=== PATIENT | male | born 1955 | race African-American/Black ===

== ENCOUNTER 2018-12-23 17:21 | Emergency (ER) | payer OTHER ==
[~2018-12-23] VITALS: Ht 182.9 cm; Wt 104.3 kg
--- NOTE | 2018-12-23 17:30 | NUR ---
BIBRA 861 FROM HOME C/O BACK PAIN, PER REPORT PT VERBALIZED S/I TO FAMILY, PT DENIES SI AT THIS TIME. [employer] AT BEDSIDE, PT NOT IN CUSTODY. SUICIDE PRECAUTIONS IN PLACE. GOWN ON, BELONGINGS AT NURSE STATION, PT WANDED BY SECURITY. READY FOR EVAL.
[2018-12-23 17:47] LABS: BASOPHILS % (AUTO) 0.7 % (0.0-2.0); EOSINOPHILS % (AUTO) 1.3 % (0.0-6.0); HEMATOCRIT 46 % (39-51); HEMOGLOBIN 15.7 g/dL (13.5-17.5); LYMPHOCYTES # (AUTO) 2.8 /CMM (0.8-4.8); LYMPHOCYTES % (AUTO) 70.7 % (20.0-44.0); MEAN CORPUSCULAR HGB CONC 34 g/dl (31.0-36.0); MEAN CORPUSCULAR VOLUME 98 fL (80-96); MONOCYTES # (AUTO) 0.2 /CMM (0.1-1.30); MONOCYTES % (AUTO) 5.9 % (2.0-12.0); NEUTROPHILS # (AUTO) 0.8 /CMM (1.8-8.9); NEUTROPHILS % (AUTO) 21.4 % (43.0-81.0); PLATELET COUNT (AUTO) 166 /CMM (150-450); RED BLOOD CELL COUNT(AUTO) 4.73 MIL/uL (4.5-6.0); WHITE BLOOD COUNT (AUTO) 3.9 K/uL (4.3-11.0)
[2018-12-23 17:54] LABS: CALCIUM, SERUM 7.9 mg/dL (8.5-10.1); POTASSIUM 3.5 mmol/L (3.5-5.1)
[2018-12-23 18:01] LABS: ALBUMIN 3.5 g/dL (3.4-5.0); BILIRUBIN,DIRECT 0.1 mg/dL (0.0-0.2); BILIRUBIN,TOTAL 0.6 mg/dL (0.2-1.0); TOTAL PROTEIN, SERUM 6.4 g/dL (6.4-8.2)
[2018-12-23 18:32] LABS: APPEARANCE,URINE Slightly Cloudy (CLEAR); BILIRUBIN,URINE Negative (NEGATIVE); BLOOD, URINE Negative Ery/uL (NEGATIVE); COLOR,URINE Dark (YELLOW); KETONES,URINE Negative (NEGATIVE); LEUKOCYTE ESTERASE ,URINE Negative (NEGATIVE); NITRITE, URINE Negative (NEGATIVE); PH,URINE 5.5 (5.0-8.0); PROTEIN,URINE 30 mg/dl (NEGATIVE); UGLUCOSE Negative (NEGATIVE); UROBILINOGEN,URINE 0.2 EU/dL (0.2)
[2018-12-23 18:48] LABS: BACTERIA,URINE Rare /HPF (None Seen); SQUAMOUS EPITHELIAL CELL,UR Few /HPF (None Seen)
[2018-12-23 18:49] LABS: HYALINE CASTS, URINE Few /LPF (None Seen); MUCUS,URINE Few /LPF (None Seen); RBC,URINE 0-2 /HPF (0-2); WBC,URINE 0-2 /HPF (0-3)
--- NOTE | 2018-12-23 19:00 | NUR ---
PT WANDERING OUT OF BED. STATES HE "CANT LIE IN BED TOO LONG BECAUSE OF BACK PAIN". ENCOURAGED PT BACK TO AND OFFERED HIM FOOD AND TV.
[2018-12-23 19:18] LABS: LYMPHOCYTES % (MANUAL) 62 % (16-48); MONOCYTES % (MANUAL) 5 % (0-11.0); NEUTROPHILS % (MANUAL) 21 (42-76)
[2018-12-23 19:19] LABS: EOSINOPHILS % (MANUAL) 2 % (0-4); REACTIVE LYMPHOCYTES 10 % (0-0)
--- NOTE | 2018-12-23 20:21 | NUR ---
BROTHER WENT HOME TO [facility]. REQUESTS WE CALL HIM WITH AN UPDATE. NUMBER IN PT DATA
[2018-12-23] MEDS ORDERED: GABAPENTIN 300 MG CAPSULE ONE (20:43)
--- NOTE | 2018-12-23 20:50 | NUR ---
PT VERBALIZED THAT HE HAVE A SCHEDULE GABAPENTIN 300MG DUE TO BE TAKEN FOR HIS BACK NEUROPATHY. INFORMED MD. ORDER RECEIVED TO GIVE GABAPENTIN. NOTED AND CARRIED OUT
[2018-12-23] MEDS ORDERED: GABAPENTIN 100 MG CAPSULE PO ONE (21:00)
--- NOTE | 2018-12-23 21:11 | NUR ---
[employer] AT BEDSIDE FOR BLOOD ALCOHOL REDRAW
--- NOTE | 2018-12-23 23:17 | NUR ---
Patient is resting comfortably in bed with eyes closed. Easily aroused. VSS
--- NOTE | 2018-12-24 03:46 | NUR ---
Patient discharged to home in stable condition. Written and verbal after care instructions given. Patient verbalizes understanding of instruction.
[2018-12-24 03:48] VITALS: BP 135/88
== END 2018-12-24 03:49 | disposition home or self-care (01) ==
LOC: ER 17:21
DX: R45.851 Suicidal ideations (principal); F10.129 Alcohol abuse with intoxication, unspecified; G89.29 Other chronic pain; M19.90 Unspecified osteoarthritis, unspecified site; I10 Essential (primary) hypertension; I48.91 Unspecified atrial fibrillation; Y90.8 Blood alcohol level of 240 mg/100 ml or more
CPT/HCPCS: 36415 ×2; 80048; 80076; 80305; 80307 ×4; 80329; 81001; 85025; 99284; G0480; 81000-TC

== ENCOUNTER 2024-05-21 16:50 | Emergency (ER) | payer OTHER ==
[~2024-05-21] VITALS: Ht 175.3 cm; Wt 100.7 kg
[2024-05-21 17:33] LABS: BASOPHILS % (AUTO) 0.7 % (0.0-2.0); EOSINOPHILS % (AUTO) 0.6 % (0.0-6.0); HEMATOCRIT 45 % (39-51); HEMOGLOBIN 15.5 g/dL (13.5-17.5); MEAN CORPUSCULAR HEMOGLOBIN 33 PG (26.0-33.0); MEAN CORPUSCULAR HGB CONC 34 g/dl (31.0-36.0); MEAN CORPUSCULAR VOLUME 96 fL (80-96); MONOCYTES # (AUTO) 0.6 K/uL (0.1-1.30); MONOCYTES % (AUTO) 10.2 % (2.0-12.0); NEUTROPHILS # (AUTO) 2.8 K/uL (1.8-8.9); NEUTROPHILS % (AUTO) 51.5 % (43.0-81.0); PLATELET COUNT (AUTO) 135 K/uL (150-450); WHITE BLOOD COUNT (AUTO) 5.4 K/uL (4.3-11.0)
[2024-05-21 17:42] LABS: CARBON DIOXIDE 23 mmol/L (21-32); CHLORIDE 107 mmol/L (98-107); CREATININE 1.3 mg/dL (0.6-1.3); GLUCOSE 85 mg/dL (74-106); POTASSIUM 4.2 mmol/L (3.5-5.1); SODIUM SERUM 142 mmol/L (136-145); UREA NITROGEN, BLOOD 12 mg/dL (7-18)
[2024-05-21] MEDS ORDERED: DILTIAZEM HCL 25 MG IV ONE (19:38)
[2024-05-21] MEDS: DILTIAZEM HCL 50 MG IV IV ONE ×2 (19:42→20:11)
[2024-05-21 20:12] VITALS: TEMP 98.1
[2024-05-21 21:06] VITALS: BP 122/93; O2SAT 99
== END 2024-05-21 21:06 | disposition home or self-care (01) ==
LOC: ER 16:55
DX: I48.91 Unspecified atrial fibrillation (principal); R00.2 Palpitations; R11.0 Nausea; R19.7 Diarrhea, unspecified; F17.210 Nicotine dependence, cigarettes, uncomplicated; I10 Essential (primary) hypertension; Z95.0 Presence of cardiac pacemaker
CPT/HCPCS: 99285; 96374; 71045; 93005 ×2; 96376; 85025; 80048; 36415; 84484 ×2; J3490